=== PATIENT | male | born 1950 | race Caucasian/White ===

== ENCOUNTER → 2021-07-24 | Day surgery (SDC) | payer MEDICARE, OTHER ==
[~2021-07-24] VITALS: Ht 182.9 cm; Wt 104.5 kg
[~2021-07-24] MED LIST: AMLODIPINE-VAL1 EAC2 PO; ASPIRIN EC81 MG PO; ATORVASTATIN CA20 MG PO; CILOSTAZOL100 MG PO; COUMADIN6 MG PO; FLEXERIL10 MG PO; HUMULIN N100 UNIT/1 SC; INDERAL20 MG PO; LOVAZA1 GM PO; LOVENOX100 MG/1 M IJ; MELOXICAM15 MG PO; METFORMIN HCL1000 MG PO; NITROQUIK SL0.4 MG PO; OMEPRAZOLE40 MG PO; PERCOCET 5-3251 EACH PO; PROPRANOLOL HCL80 M1 PO; TRESIBA SC; VICTOZA IJ; VITAMIN B-121000 MC1 PO; VITAMIN D1000 UNIT PO; ZYRTEC10 M3 PO; warfarin PO
[2021-07-24 06:37] LABS: HCT 34.6 % (42.0-52.0); HGB 10.8 g/dl (13.2-18.0); MCH 24.3 pg (25.0-31.0); MCHC 31.2 g/dL (32.0-36.0); MCV 77.8 fL (78.0-100.0); MPV 8.6 fL (6.0-9.5); RBC 4.45 M/uL (4.70-6.00); RDW 17.3 % (11.5-14.0); WBC 8.2 K/uL (4.0-10.5)
[2021-07-24 06:43] LABS: INR 1.04 (0.9-1.2); PTT 25.8 SECONDS (24.4-34.7)
[2021-07-24 06:56] LABS: ALBUMIN 3.5 g/dL (3.4-5.0); BILIRUBIN - TOTAL 0.6 mg/dL (0.2-1.0); CREATININE 1.31 mg/dL (0.67-1.17); GLOBULIN (CALCULATION) 4.1 g/dL; POTASSIUM 3.8 mmol/L (3.5-5.1); TOTAL PROTEIN 7.6 g/dL (6.4-8.2)
== END | disposition home or self-care (01) ==
LOC: FAS 05:50
PROVIDERS: Anesthesiology; Orthopaedic Surgery
DX: M65.341 Trigger finger, right ring finger (principal); I10 Essential (primary) hypertension; E78.5 Hyperlipidemia, unspecified; I25.2 Old myocardial infarction; K21.9 Gastro-esophageal reflux disease without esophagitis; E11.9 Type 2 diabetes mellitus without complications; Z88.0 Allergy status to penicillin; Z88.1 Allergy status to other antibiotic agents; Z88.5 Allergy status to narcotic agent; Z88.8 Allergy status to other drugs, medicaments and biological substances; Z79.82 Long term (current) use of aspirin; Z79.4 Long term (current) use of insulin; Z79.01 Long term (current) use of anticoagulants
CPT/HCPCS: 36415; 80053; 85610; 85730; 93005; J1100; J1885; J2250; J2405; J2704; J3010; J7120